=== PATIENT | male | born 1985 | race Caucasian/White ===

== ENCOUNTER → 2018-07-25 | Outpatient (REF) | payer BC | LOC: M LAB REF 12:48 | DX: Z71.3 Dietary counseling and surveillance (principal) | CPT/HCPCS: 86900 ==

== ENCOUNTER → 2019-03-22 | Outpatient (REF) | payer BC ==
[2019-03-22 13:48] LABS: APPEARANCE, URINE CLEAR (CLEAR); BACTERIA, URINE AUTO NEGATIVE (NEGATIVE); BILIRUBIN, URINE AUTO NEGATIVE (NEGATIVE); BLOOD, URINE BLOOD NEGATIVE (NEGATIVE); COLOR, URINE YELLOW (YELLOW); GLUCOSE, URINE (UA) AUTO NEGATIVE (NEGATIVE); KETONE, URINE AUTO NEGATIVE (NEGATIVE); LEUKOCYTE ESTERASE, URINE AUTO NEGATIVE (NEGATIVE); NITRITE, URINE AUTO NEGATIVE (NEGATIVE); PROTEIN, URINE AUTO NEGATIVE (NEGATIVE); RBC, URINE AUTO 0 /HPF (0-3); SPECIFIC GRAVITY URINE AUTO 1.003 (1.002-1.035); SQUAMOUS EPITHELIAL CELL UR AU 0 /HPF (0-6); UROBILINOGEN, URINE AUTO 0.2 mg/dL (0.0-2.0); WBC, URINE AUTO 0 /HPF (0-3)
== END ==
LOC: M LAB REF 12:51
PROVIDERS: ATTEND Nurse Practitioner Family
DX: R10.9 Unspecified abdominal pain (principal)

== ENCOUNTER → 2019-10-26 | Outpatient (CLI) | payer BC ==
--- NOTE | 2019-10-27 09:12 | REP ---
INDICATION: Sensory deficit PROCEDURE: CT maxillofacial. Axial images with multiple air formations. COMPARISON STUDIES: FINDINGS: No prior similar studies There is mild mucosal thickening in the floors of the maxillary sinuses, greater on the left. Sinuses are otherwise well aerated. Frontal sinuses are small. There is a mild rightward nasal spur. Dentition appears unremarkable. There is an incompletely imaged object along the external surface of the left mandible. CONCLUSION: CT sinus without acute findings. Electronically Signed by Jose Bella MD 10/27/2019 09:03 A
== END ==
LOC: M RAD 17:33
PROVIDERS: ATTEND Otolaryngology
DX: F44.6 Conversion disorder with sensory symptom or deficit (principal); J31.0 Chronic rhinitis